=== PATIENT | female | born 1985 | race Caucasian/White ===

== ENCOUNTER 2019-11-07 20:11 | Emergency (ER) | payer MEDICAID, OTHER ==
[~2019-11-07] VITALS: Ht 162.5 cm; Wt 47.4 kg
[2019-11-07 21:09] LABS: CLARITY,URINE SLT CLOUDY; COLOR,URINE YELLOW; GLUCOSE, URINE (UA) NEGATIVE (NEGATIVE); KETONES,URINE NEGATIVE (NEGATIVE); NITRITE,URINE NEGATIVE (NEGATIVE); PROTEIN,URINE NEGATIVE (NEGATIVE)
[2019-11-07 21:10] LABS: BACTERIA,URINE NEGATIVE /HPF; BILIRUBIN,URINE NEGATIVE (NEGATIVE); HCG,QUALITATIVE URINE NEGATIVE (NEGATIVE); LEUKOCYTE ESTERASE ,URINE NEGATIVE (NEGATIVE); RBC,URINE RARE /HPF; WBC,URINE 0-2 /HPF
[2019-11-07 21:14] LABS: AMPHETAMINE SCREEN, URINE POSITIVE (NEGATIVE); BARBITURATE SCREEN URINE NEGATIVE (NEGATIVE); BENZODIAZEPINES SCREEN URINE NEGATIVE (NEGATIVE); CANNABINOID SCREEN, URINE NEGATIVE (NEGATIVE); COCAINE SCREEN URINE NEGATIVE (NEGATIVE); METHADONE STAT NEGATIVE (NEGATIVE); METHAMPHETAMINE SCREEN URINE S NEGATIVE (NEGATIVE); OPIATE SCREEN URINE NEGATIVE (NEGATIVE); OXYCODONE STAT NEGATIVE (NEGATIVE); PROPOXYPHENE STAT NEGATIVE (NEGATIVE); TRICYCLIC ANTIDEPRESSANTS SCRE POSITIVE (NEGATIVE)
--- NOTE | 2019-11-07 22:37 | ED General ---
General Chief Complaint: Dizziness/Syncope Stated Complaint: LIGHT-HEADED Nursing Triage Note: PT. STATED THAT SINCE YESTERDAY SHE HAS HAD PAIN IN THE BACK AND THE LEFT SIDE OF HER ABD. HER BALANCE HAS BEEN OFF SINCE LAST NIGHT. SHE C/O LEG SHAKING CRAZY AND GETTING WORSE. SHE C/O HAVING HOT FLASHES AND NAUSEA OFF AND ON ALL DAY. Nursing Sepsis Screen: No Definite Risk Source of Information: Patient History of Present Illness Date Seen by Provider: Nov 07, 2019 Time Seen by Provider: 21:59 Initial Comments 34 yo F presents with complaints of feeling unsteady and not being able to walk in a straight line or with a steady gait. she states she feels weak and shaky. She has had some pain in her low back and left side of her abdomen as well as epigastric area. 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 However the feeling off balance and shaky sensation in her extremities is a new sensation. She's been having hot flashes and feeling some nausea off and on since yesterday. She has no headache. She denies any fall or hitting her head. She has no pain with urination. She felt like everything was moving on her when she tried to drive so she had her BF bung driver her and her daughters to the ED to be evaluated tonight. Allergies and Home Medications Allergies Coded Allergies: amoxicillin (Verified Allergy, Unknown, 11/07/19) clindamycin (Verified Allergy, Unknown, 11/07/19) erythromycin base (Verified Allergy, Unknown, 11/07/19) Uncoded Allergies: PCN (Allergy, Unknown, 11/07/19) Patient Home Medication List Home Medication List Reviewed: Yes Review of Systems Review of Systems Constitutional: see HPI; No chills; dizziness (and light headed); No fever (hot flashes and subjective fever); malaise, weakness (general) EENTM: No ear discharge, No hearing loss, No ear pain, No double vision, No eye pain, No vision loss, No epistaxis, No nose congestion Respiratory: No cough, No dyspnea on exertion, No short of breath Cardiovascular: No chest pain Gastrointestinal: abdominal pain (epigastric); No diarrhea, No nausea, No vomiting Genitourinary: No discharge, No dysuria; other (irregular bleeding) Musculoskeletal: back pain (low back pain and flank pain) Skin: rash (itchy rash and hives off and on) Psychiatric/Neurological: Anxiety; Denies Headache, Denies Numbness, Denies Paresthesia; Tremors Hematologic/Lymphatic: Denies Blood Clots Past Hjzrqih-Iqpjnw-Nmzapa Hx Past Med/Social Hx: Reviewed Nursing Past Med/Soc Hx Patient Social History Recent Foreign Travel: No Contact w/Someone Who Travel: No Recent Infectious Disease Expo: No Recent Hopitalizations: No Physical Abuse: No Sexual Abuse: No Mistreated: No Fear: No Seasonal Allergies Seasonal Allergies: No Past Medical History Surgeries: Yes Appendectomy, Gallbladder Respiratory: No Cardiac: Yes Hypertension Neurological: No Genitourinary: No Gastrointestinal: No Musculoskeletal: No Endocrine: Yes (ANGIO EDEMA TYPE 2) Cancer: No Did You Recieve Any Treatments: No Psychosocial: Yes Depression Integumentary: No Blood Disorders: No Physical Exam Vital Signs Vital Signs - First Documented 11/07/19 20:23 Temp 36.7 Pulse 88 Resp 16 B/P (MAP) 146/87 (106) Pulse Ox 99 O2 Delivery Room Air Capillary Refill : Less Than 3 Seconds Height, Weight, BMI Height: '" Weight: lbs. oz. kg; 17.00 BMI Method: General Appearance: No Apparent Distress, Cachetic, Thin HEENT: PERRL/EOMI, TMs Normal, Normal ENT Inspection, Pharynx Normal Neck: Full Range of Motion, Normal Inspection, Non Tender, Supple; No Carotid Bruit Respiratory: Chest Non Tender, Lungs Clear, Normal Breath Sounds, No Accessory Muscle Use, No Respiratory Distress Cardiovascular: Regular Rate, Rhythm, No Murmur, Normal Peripheral Pulses Gastrointestinal: Normal Bowel Sounds, No Pulsatile Mass, Non Tender, Soft Extremity: Normal Capillary Refill, Normal Inspection, No Pedal Edema Neurologic/Psychiatric: Alert, Oriented x3, No Motor/Sensory Deficits Skin: Warm/Dry, Rash (some urticarial areas of rash) Lymphatic: No Adenopathy Progress/Results/Core Measures Suspected Sepsis Recent Fever Within 48 Hours: No Infection Criteria Present: None New/Unexplained Altered Menta: No Sepsis Screen: No Definite Risk SIRS Temperature: Pulse: 88 Respiratory Rate: 16 Laboratory Tests 11/07/19 22:42: White Blood Count 9.9 Blood Pressure 146 /87 Mean: 106 Laboratory Tests 11/07/19 22:42: Platelet Count 270 11/07/19 23:12: Creatinine 1.01, Total Bilirubin 0.3 Results/Orders Lab Results Laboratory Tests Test 11/07/19 20:50 11/07/19 22:42 11/07/19 23:12 Range/Units Urine Color YELLOW Urine Clarity SLT CLOUDY Urine pH 6.0 5-9 Urine Specific [place] 1.015 L 1.016-1.022 Urine Protein NEGATIVE NEGATIVE Urine Glucose (UA) NEGATIVE NEGATIVE Urine Ketones NEGATIVE NEGATIVE Urine Nitrite NEGATIVE NEGATIVE Urine Bilirubin NEGATIVE NEGATIVE Urine Urobilinogen 0.2 < = 1.0 MG/DL Urine Leukocyte Esterase NEGATIVE NEGATIVE Urine RBC (Auto) 3+ H NEGATIVE Urine RBC RARE /HPF Urine WBC 0-2 /HPF Urine Squamous Epithelial Cells 2-5 /HPF Urine Crystals NONE /LPF Urine Bacteria NEGATIVE /HPF Urine Casts NONE /LPF Urine Mucus NONE /LPF Urine Culture Indicated NO Urine Test NEGATIVE NEGATIVE Urine Opiates Screen NEGATIVE NEGATIVE Urine Oxycodone Screen NEGATIVE NEGATIVE Urine Methadone Screen NEGATIVE NEGATIVE Urine Propoxyphene Screen NEGATIVE NEGATIVE Urine Barbiturates Screen NEGATIVE NEGATIVE Ur Tricyclic Antidepressants Screen POSITIVE H NEGATIVE Urine Phencyclidine Screen NEGATIVE NEGATIVE Urine Amphetamines Screen POSITIVE H NEGATIVE Urine Methamphetamines Screen NEGATIVE NEGATIVE Urine Benzodiazepines Screen NEGATIVE NEGATIVE Urine Cocaine Screen NEGATIVE NEGATIVE Urine Cannabinoids Screen NEGATIVE NEGATIVE White Blood Count 9.9 4.3-11.0 10^3/uL Red Blood Count 4.27 L 4.35-5.85 10^6/uL Hemoglobin 13.3 11.5-16.0 G/DL Hematocrit 40 35-52 % Mean Corpuscular Volume 94 80-99 FL Mean Corpuscular Hemoglobin 31 25-34 PG Mean Corpuscular Hemoglobin Concent 33 32-36 G/DL Red Cell Distribution Width 13.8 10.0-14.5 % Platelet Count 270 130-400 10^3/uL Mean Platelet Volume 9.0 7.4-10.4 FL Neutrophils (%) (Auto) 53 42-75 % Lymphocytes (%) (Auto) 35 12-44 % Monocytes (%) (Auto) 8 0-12 % Eosinophils (%) (Auto) 3 0-10 % Basophils (%) (Auto) 1 0-10 % Neutrophils # (Auto) 5.3 1.8-7.8 X 10^3 Lymphocytes # (Auto) 3.4 1.0-4.0 X 10^3 Monocytes # (Auto) 0.8 0.0-1.0 X 10^3 Eosinophils # (Auto) 0.3 0.0-0.3 10^3/uL Basophils # (Auto) 0.1 0.0-0.1 10^3/uL Sodium Level 134 L 135-145 MMOL/L Potassium Level 3.9 3.6-5.0 MMOL/L Chloride Level 101 98-107 MMOL/L Carbon Dioxide Level 21 21-32 MMOL/L Anion Gap 12 5-14 MMOL/L Blood Urea Nitrogen 12 7-18 MG/DL Creatinine 1.01 0.60-1.30 MG/DL Estimat Glomerular Filtration Rate > 60 BUN/Creatinine Ratio 12 Glucose Level 79 70-105 MG/DL Calcium Level 9.2 8.5-10.1 MG/DL Corrected Calcium 9.2 8.5-10.1 MG/DL Magnesium Level 1.8 1.6-2.4 MG/DL Total Bilirubin 0.3 0.1-1.0 MG/DL Aspartate Amino Transf (AST/SGOT) 19 5-34 U/L Alanine Aminotransferase (ALT/SGPT) 8 0-55 U/L Alkaline Phosphatase 65 40-136 U/L Total Protein 6.6 6.4-8.2 GM/DL Albumin 4.0 3.2-4.5 GM/DL My Orders Orders - ESTHER SPENCER MD Ua Culture If Indicated (11/07/19 20:55) Drug Screen Stat (Urine) (11/07/19 20:55) Hcg,Qualitative Urine (11/07/19 20:55) Cbc With Automated Diff (11/07/19 22:29) Comprehensive Metabolic Panel (11/07/19 22:29) Magnesium (11/07/19 22:29) Ct Head Wo (11/07/19 22:29) Vital Signs/I&O 11/07/19 11/08/19 20:23 00:04 Temp 36.7 36.7 Pulse 88 88 Resp 16 16 B/P (MAP) 146/87 (106) 146/87 (106) Pulse Ox 99 99 O2 Delivery Room Air Room Air Capillary Refill : Less Than 3 Seconds Blood Pressure Mean: 106 Progress Note #1: Progress Note Urinalysis and drug screen did not show any explanation for her symptoms. She did have some blood in her urine but states she has been having some spotting and irregular periods. Her drug screen showed amphetamines consistent with her albuterol as well as tricyclics consistent with her medications she is taking. Counseled that I could do a CT of her head to evaluate her twitching arms and legs as well as the unsteady gait and do basic CBC and Chemistry to look for anemia or signs of infection as well as electrolyte imbalance, liver or renal function failure. Patient agreed and was willing to do the testing to put her mind at ease. I advised she may still not have an answer after these tests and may still need to follow up with her primary. However she could at least rule out some of the more severe potential causes of her symptoms. Progress Note #2: Progress Note Labs are all stable without acute significant abnormality. Her CBC and chemistry did not show any acute anemia or elevation of her white count to indicate infection her reason for her symptoms. Her electrolytes are all stable without any acute imbalance. Her renal and hepatic function are all stable as well. Encouraged to follow-up with her primary for continued testing. In the meantime drink plenty of fluids and get plenty of rest. This may be related back to some stress and needing to get some more rest Departure Impression Primary Impression: Unsteady gait Additional Impressions: Dizziness Muscle twitching Irregular periods Stress and adjustment reaction Disposition: 01 HOME, SELF-CARE Condition: Stable Departure-Patient Inst. Decision time for Depature: 00:05 Referrals: BEAU MURRAY APRN (PCP/Family) Primary Care Physician Patient Instructions: Dizziness, Nonvertigo, (DC), Stress Add. Discharge Instructions: Stay well hydrated and continue your medicines as prescribed. Follow up with clinic for continued evaluation and further testing beyond what is available in the ER. All discharge instructions reviewed with patient and/or family. Voiced understanding. ESTHER SPENCER MD Nov 07, 2019 22:37
[2019-11-07 22:50] LABS: BASOPHILS % (AUTO) 1 % (0-10); EOSINOPHILS # (AUTO) 0.3 10^3/uL (0.0-0.3); EOSINOPHILS % (AUTO) 3 % (0-10); HEMATOCRIT 40 % (35-52); HEMOGLOBIN 13.3 G/DL (11.5-16.0); LYMPHOCYTES # (AUTO) 3.4 X 10^3 (1.0-4.0); LYMPHOCYTES % (AUTO) 35 % (12-44); MEAN CORPUSCULAR HEMOGLOBIN 31 PG (25-34); MEAN CORPUSCULAR HGB CONC 33 G/DL (32-36); MEAN CORPUSCULAR VOLUME 94 FL (80-99); MONOCYTES # (AUTO) 0.8 X 10^3 (0.0-1.0); MONOCYTES % (AUTO) 8 % (0-12); NEUTROPHILS # (AUTO) 5.3 X 10^3 (1.8-7.8); NEUTROPHILS % (AUTO) 53 % (42-75); PLATELET COUNT 270 10^3/uL (130-400); RED CELL DISTRIBUTION WIDTH 13.8 % (10.0-14.5); WHITE BLOOD COUNT 9.9 10^3/uL (4.3-11.0)
[2019-11-07 22:51] LABS: BASOPHILS # (AUTO) 0.1 10^3/uL (0.0-0.1)
[2019-11-07 23:36] LABS: BUN/CREATININE RATIO 12; CALCIUM 9.2 MG/DL (8.5-10.1); CARBON DIOXIDE 21 MMOL/L (21-32); CHLORIDE 101 MMOL/L (98-107); CREATININE SERUM 1.01 MG/DL (0.60-1.30); GFR ESTIMATED > 60; GLUCOSE 79 MG/DL (70-105); MAGNESIUM 1.8 MG/DL (1.6-2.4); POTASSIUM 3.9 MMOL/L (3.6-5.0); SODIUM 134 MMOL/L (135-145)
[2019-11-07 23:37] LABS: ALANINE AMINOTRANSFERASE 8 U/L (0-55); ALKALINE PHOSPHATASE 65 U/L (40-136); BILIRUBIN,TOTAL 0.3 MG/DL (0.1-1.0); TOTAL PROTEIN 6.6 GM/DL (6.4-8.2)
[2019-11-08 00:04] VITALS: BP 146/87
--- NOTE | 2019-11-08 05:32 | Diagnostic Imaging Report ---
INDICATION: Dizziness TECHNIQUE: Routine non contrast-enhanced axial images were obtained from the skull base to the vertex. Auto Exposure Controls were utilized during the CT exam to meet ALARA standards for radiation dose reduction COMPARISON: None. FINDINGS: The ventricles and cortical sulci are normal in size and contour. There is no midline shift or mass-effect. No acute intra-axial hemorrhage is seen. There are no abnormal areas of increased or decreased density to suggest acute hemorrhage or edema. No extra-axial masses or collections are present. The bony calvarium is intact. The visualized paranasal sinuses are unremarkable. The mastoid air cells are clear. IMPRESSION: 1. No acute intracranial abnormality. No CT evidence of mass, acute infarct or intracranial hemorrhage. Dictated by: Dictated on workstation # [id number]
== END 2019-11-08 00:08 | disposition home or self-care (01) ==
LOC: ER FS 20:16
DX: R26.89 Other abnormalities of gait and mobility (principal); R42 Dizziness and giddiness; R25.3 Fasciculation; N92.6 Irregular menstruation, unspecified; F43.20 Adjustment disorder, unspecified; I10 Essential (primary) hypertension; F32.9 Major depressive disorder, single episode, unspecified; Z88.0 Allergy status to penicillin; Z88.1 Allergy status to other antibiotic agents; Z90.49 Acquired absence of other specified parts of digestive tract
CPT/HCPCS: 36415; 70450; 80053; 80306; 81000; 83735; 84703; 85025